=== PATIENT | female | born 1980 | race Caucasian/White ===

== ENCOUNTER 2016-11-29 20:29 | Emergency (ER) | payer BC ==
[2016-11-29] MEDS ORDERED: NS 0.9% 1000 ML* 1,000 ML IV ONE (21:28)
[2016-11-29] MEDS ORDERED: Ketorolac INJ* 30 MG/ML 1 ML VIAL IV ONE (21:28)
[2016-11-29 22:03] LABS: Hematocrit 42 % (35-47); Hemoglobin 14.3 g/dl (12.0-16.0); Mean Corpuscular HGB Conc 34 g/dl (31-36); Mean Corpuscular Hemoglobin 30 pg (27-31); Mean Corpuscular Volume 88 fL (80-97); Mean Platelet Volume 8 um3 (7.4-10.4); Red Blood Count 4.75 10^6/ul (4.0-5.4); Red Cell Distribution Width 13 % (10.5-15); White Blood Count 8.1 10^3/ul (3.5-10.8)
[2016-11-29 22:11] LABS: Add Diff/Slide Review? Slide Review Added; Comments Flag Yes
[2016-11-29 22:18] LABS: Albumin 4.2 g/dL (3.2-5.2); BUN/Creatinine Ratio 15.5 (8-20); C Reactive Protein 6.85 mg/L (< 5.00); Calcium 8.9 mg/dL (8.6-10.3); EGFR African American 121.2 (>60); EGFR Non-African American 94.2 (>60); Globulin 2.9 g/dL (2-4); Total Bilirubin 0.3 mg/dL (0.2-1.0); Total Protein 7.1 g/dL (6.4-8.9)
[2016-11-29 22:20] LABS: Potassium 3.7 mmol/L (3.5-5.0)
[2016-11-29] MEDS ORDERED: LORazepam TAB(*) 1 MG PO ONE (23:06)
[2016-11-29 23:16] VITALS: BP 126/73
--- NOTE | 2016-11-30 11:32 | ED ---
Joey Reynoso Michael, scribed for Edwin Flynn MD on 11/29/16 at 2112 . Influenza-Like Illness - HPI Summary HPI Summary: 36 y/o female comes to the ED presenting with neck and shoulder pain that started one week ago. The pt reports that the neck and shoulder pain started on the left side and has radiated to the right side. She also c/o fever with a temperature of 100.5, chills, and n/v/d that started 4 days ago. The pt presents with nasal congestion and sore throat that started 3 days ago. Currently, she does not have n/v/d, and yesterday was her first nml BM. The pt reports taking [place] today. 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 The doctor ordered her to have a CXR, blood work, and PPD. - History of Current Complaint Chief Complaint: EDFever Time Seen by Provider: 11/29/16 21:07 Hx Obtained From: Patient, Medical Records Onset/Duration: Gradual Onset, Lasting Weeks, Still Present Severity: Moderate Associated Signs & Symptoms: Fever, Myalgia - shoulder and neck pain, Sore Throat, Nasal Congestion, Vomiting - nausea., Diarrhea - Allergy/Home Medications Allergies/Adverse Reactions: Allergies Allergy/AdvReac Type Severity Reaction Status Date / Time No Known Allergies Allergy Verified 11/29/16 20:54 PMH/Surg Hx/FS Hx/Imm Hx Cardiovascular History: Denies: Other Cardiovascular Problems/Disorders GI History: Reports: Other GI Disorders - Hx heartburn, dx w/ h pylori Aug 2011 Denies: Hx Cirrhosis Musculoskeletal History: Denies: Other Musculoskeletal History Sensory History: Reports: Hx Contacts or Glasses - GLASSES Denies: Hx Hearing Aid Opthamlomology History: Reports: Hx Contacts or Glasses - GLASSES - Surgical History Surgery Procedure, Year, and Place: AGE 9, NASAL FRACTURE, 1989, [facility] Hx Anesthesia Reactions: No Infectious Disease History: No Infectious Disease History: Denies: Hx Hepatitis, Traveled Outside the [place] in Last 30 Days - Family History Known Family History: Positive: None Family History: no anesthesia reaction - Social History Occupation: Employed Full-time Lives: Alone Alcohol Use: None Substance Use Type: Reports: None Smoking Status (MU): Former Smoker Type: Cigarettes Review of Systems Positive: Sore Throat, Nasal Discharge Positive: Vomiting, Diarrhea, Nausea Positive: Myalgia - neck pain. shoulder pain. All Other Systems Reviewed And Are Negative: Yes Physical Exam Triage Information Reviewed: Yes Vital Signs On Initial Exam: Initial Vitals Temp Pulse Resp BP Pulse Ox 98.7 F 97 16 134/78 98 11/29/16 20:40 11/29/16 20:40 11/29/16 20:40 11/29/16 20:40 11/29/16 20:40 Vital Signs Reviewed: Yes Appearance: Positive: Well-Appearing, No Pain Distress Skin: Positive: Warm, Skin Color Reflects Adequate Perfusion, Dry Head/Face: Positive: Normal Head/Face Inspection Eyes: Positive: Normal ENT: Positive: Pharyngeal erythema - posterior Neck: Positive: No Lymphadenopathy Respiratory/Lung Sounds: Positive: Clear to Auscultation, Breath Sounds Present Cardiovascular: Positive: RRR Abdomen Description: Positive: Nontender, Soft Bowel Sounds: Positive: Present Musculoskeletal: Positive: Other - tender to palpation pericervical and upper dorsal spine. Neurological: Positive: Other - negative kernigs and negative brudzinski Psychiatric: Positive: Affect/Mood Appropriate Diagnostics - Vital Signs Vital Signs Temp Pulse Resp BP Pulse Ox 11/29/16 20:40 98.7 F 97 16 134/78 98 - Laboratory Lab Results: Lab Results 11/29/16 11/29/16 Range/Units 21:55 21:55 WBC 8.1 (3.5-10.8) 10^3/ul RBC 4.75 (4.0-5.4) 10^6/ul Hgb 14.3 (12.0-16.0) g/dl Hct 42 (35-47) % MCV 88 (80-97) fL MCH 30 (27-31) pg MCHC 34 (31-36) g/dl RDW 13 (10.5-15) % Plt Count 212 (150-450) 10^3/ul MPV 8 (7.4-10.4) um3 Neut % (Auto) 69.8 (38-83) % Lymph % (Auto) 14.3 L (25-47) % [place] % (Auto) 9.2 H (1-9) % Eos % (Auto) 2.2 (0-6) % Baso % (Auto) 4.5 H (0-2) % Absolute Neuts (auto) 5.6 (1.5-7.7) 10^3/ul Absolute Lymphs (auto) 1.2 (1.0-4.8) 10^3/ul Absolute Monos (auto) 0.7 (0-0.8) 10^3/ul Absolute Eos (auto) 0.2 (0-0.6) 10^3/ul Absolute Basos (auto) 0.4 H (0-0.2) 10^3/ul Absolute Nucleated RBC 0 10^3/ul Nucleated RBC % 0.1 Sodium 137 (133-145) mmol/L Potassium 3.7 (3.5-5.0) mmol/L Chloride 105 (101-111) mmol/L Carbon Dioxide 25 (22-32) mmol/L Anion Gap 7 (2-11) mmol/L BUN 11 (6-24) mg/dL Creatinine 0.71 (0.51-0.95) mg/dL Est GFR ( Amer) 121.2 (>60) Est GFR (Non-Af Amer) 94.2 (>60) BUN/Creatinine Ratio 15.5 (8-20) Glucose 96 (70-100) mg/dL Calcium 8.9 (8.6-10.3) mg/dL Total Bilirubin 0.30 (0.2-1.0) mg/dL AST 18 (13-39) U/L ALT 19 (7-52) U/L Alkaline Phosphatase 62 (34-104) U/L C-Reactive Protein 6.85 H (< 5.00) mg/L Total Protein 7.1 (6.4-8.9) g/dL Albumin 4.2 (3.2-5.2) g/dL Globulin 2.9 (2-4) g/dL Albumin/Globulin Ratio 1.4 (1-3) Result Diagrams: 11/29/16 21:55 11/29/16 21:55 Lab Statement: Any lab studies that have been ordered have been reviewed, and results considered in the medical decision making process. Flu Symptom Course/Dx - Course Course Of Treatment: Ms. Bowens presented to the ED with a viral-like picture of not feeling well with malaise and myalgias, mild and intermittent N/V/D and low grade fevers. She complained particularily about her upper back and neck being tight and painful with movement. She was tender in those areas and had no meningeal signs and labs were normal. She improved with ketorolac and I will treat her symptomatically. - Diagnoses Provider Diagnoses: Viral syndrome Discharge - Discharge Plan Condition: Stable Disposition: HOME Prescriptions: LORazepam TAB(*) [Ativan TAB(*)] 1 mg PO Q6H PRN #20 tab MDD 4 PRN Reason: Pain Patient Education Materials: Ibuprofen (By mouth), Viral Syndrome (ED) Referrals: Isaias Luu MD [Primary Care Provider] - The documentation as recorded by the Joey nation Michael accurately reflects the service I personally performed and the decisions made by me, Edwin Flynn MD.
== END 2016-11-29 23:14 | disposition home or self-care (01) ==
LOC: ED 20:29
DX: B34.9 Viral infection, unspecified (principal); M25.519 Pain in unspecified shoulder; M54.2 Cervicalgia; J02.9 Acute pharyngitis, unspecified; Z87.891 Personal history of nicotine dependence
CPT/HCPCS: 36415; 80053; 85025; 86140; 96361; 96374; 99283; A9270-GY; J1885

== ENCOUNTER 2017-08-21 09:23 | Emergency (ER) | payer BC ==
[2017-08-21] MEDS ORDERED: Ondansetron INJ* 2 MG/ML VIAL IV ONE (09:35)
[2017-08-21 09:58] LABS: ABS Basophils 0 10^3/ul (0-0.2); ABS Eosinophils 0 10^3/ul (0-0.6); ABS Lymphocytes 0.6 10^3/ul (1.0-4.8); ABS Monocytes 0.4 10^3/ul (0-0.8); ABS Neutrophils 13.8 10^3/ul (1.5-7.7); ABS Nucleated RBC 0 10^3/ul; Eosinophil % 0.1 % (0-6); Hematocrit 43 % (35-47); Hemoglobin 14.9 g/dl (12.0-16.0); Lymphocyte % 3.8 % (25-47); Mean Corpuscular HGB Conc 35 g/dl (31-36); Mean Corpuscular Hemoglobin 30 pg (27-31); Mean Corpuscular Volume 87 fL (80-97); Mean Platelet Volume 7 um3 (7.4-10.4); Nucleated Red Blood Cells % 0; Platelet Count 296 10^3/ul (150-450); Red Blood Count 4.96 10^6/ul (4.0-5.4); Red Cell Distribution Width 13 % (10.5-15); White Blood Count 14.8 10^3/ul (3.5-10.8)
[2017-08-21] MEDS: NS 0.9% 1000 ML* 2,000 ML IV ONE (10:05)
[2017-08-21 10:18] LABS: EGFR Non-African American 100.8 (>60)
[2017-08-21 11:52] VITALS: BP 134/76
--- NOTE | 2017-08-21 12:55 | ED ---
Gregg Reynoso Gabriel, scribed for Bryan Gonzalez MD on 08/21/17 at 1013 . Abdominal Pain/Female - HPI Summary HPI Summary: This patient is a 36 year old F presenting to [facility] with a chief complaint of ABD since 08/20/17. The patient rates the pain 6/10 in severity. Patient reports fatigue, brown vomiting, and loose stool that resembles her vomit. Additionally she reports that her son and daughter are experiencing similar symptoms. - History of Current Complaint Chief Complaint: EDAbdPain Stated Complaint: ABD PAIN, Time Seen by Provider: 08/21/17 10:08 Hx Obtained From: Patient Onset/Duration: Lasting Days - 1, Still Present Timing: Constant Severity Initially: Mild Severity Currently: Mild Pain Intensity: 6 Pain Scale Used: 0-10 Numeric Location: Diffuse Associated Signs and Symptoms: Positive: Vomiting, Diarrhea, Other: - fatigue Allergies/Adverse Reactions: Allergies Allergy/AdvReac Type Severity Reaction Status Date / Time No Known Allergies Allergy Verified 11/29/16 20:54 PMH/Surg Hx/FS Hx/Imm Hx Previously Healthy: No Cardiovascular History: Denies: Other Cardiovascular Problems/Disorders GI History: Reports: Other GI Disorders - Hx heartburn, dx w/ h pylori Aug 2011 Denies: Hx Cirrhosis Musculoskeletal History: Denies: Other Musculoskeletal History Sensory History: Reports: Hx Contacts or Glasses - GLASSES Denies: Hx Hearing Aid Opthamlomology History: Reports: Hx Contacts or Glasses - GLASSES - Surgical History Surgery Procedure, Year, and Place[place] AGE 9, [place] [facility] [place] Hx Anesthesia Reactions: No - Immunization History Date of Influenza Vaccine: 07/11 Immunizations Up to Date: Yes Infectious Disease History: No Infectious Disease History: Denies: Hx Hepatitis, Traveled Outside the [place] in Last 30 Days - Family History Known Family History: Negative: Hypertension Family History: no anesthesia reaction - Social History Lives: With Family Alcohol Use: None Substance Use Type: Reports: None Hx Tobacco Use: Yes Smoking Status (MU): Former Smoker Type: Cigarettes Review of Systems Positive: Fatigue Positive: Abdominal Pain, Vomiting, Diarrhea All Other Systems Reviewed And Are Negative: Yes Physical Exam - Summary Physical Exam Summary: Appearance: Well appearing, no pain distress Skin: warm, dry, reflects adequate perfusion Head/face: normal Eyes: EOMI, KESHA ENT: Patient has a yellow tinge to her lips and tounge. Neck: supple, non-tender Respiratory: CTA, breath sounds present Cardiovascular: RRR, pulses symmetrical Abdomen: non-tender, soft Bowel: Decreased bowel sounds Musculoskeletal: normal, strength/ROM intact Neuro: normal, sensory motor intact, A&Ox3 Triage Information Reviewed: Yes Vital Signs On Initial Exam: Initial Vitals Temp Pulse Resp BP Pulse Ox 98.5 F 121 20 133/107 97 08/21/17 09:24 08/21/17 09:24 08/21/17 09:24 08/21/17 09:24 08/21/17 09:24 Vital Signs Reviewed: Yes - Bravo Coma Scale Coma Scale Total: 15 Diagnostics - Vital Signs Vital Signs Temp Pulse Resp BP Pulse Ox 08/21/17 09:44 98.8 F 110 20 131/81 97 08/21/17 09:24 98.5 F 121 20 133/107 97 - Laboratory Lab Results: Lab Results 08/21/17 Range/Units 09:47 WBC 14.8 H (3.5-10.8) 10^3/ul RBC 4.96 (4.0-5.4) 10^6/ul Hgb 14.9 (12.0-16.0) g/dl Hct 43 (35-47) % MCV 87 (80-97) fL MCH 30 (27-31) pg MCHC 35 (31-36) g/dl RDW 13 (10.5-15) % Plt Count 296 (150-450) 10^3/ul MPV 7 L (7.4-10.4) um3 Neut % (Auto) 93.3 H (38-83) % Lymph % (Auto) 3.8 L (25-47) % [place] % (Auto) 2.6 (1-9) % Eos % (Auto) 0.1 (0-6) % Baso % (Auto) 0.2 (0-2) % Absolute Neuts (auto) 13.8 H (1.5-7.7) 10^3/ul Absolute Lymphs (auto) 0.6 L (1.0-4.8) 10^3/ul Absolute Monos (auto) 0.4 (0-0.8) 10^3/ul Absolute Eos (auto) 0 (0-0.6) 10^3/ul Absolute Basos (auto) 0 (0-0.2) 10^3/ul Absolute Nucleated RBC 0 10^3/ul Nucleated RBC % 0 Result Diagrams: 08/21/17 09:47 08/21/17 09:47 Lab Statement: Any lab studies that have been ordered have been reviewed, and results considered in the medical decision making process. Re-Evaluation - Re-Evaluation First Eval Re-Evaluation Time: 11:00 Change: Improved Comment: Patient is feeling better and is about half way through her IV fluids. Abdominal Pain Fem Course/Dx - Course Course Of Treatment: pt with n/v/d with 2 family members with same. No abd tenderness. Labs as above. Likely viral. Tx with fluids, zofran here with improvement. D/C with zofran. - Diagnoses Provider Diagnoses: Acute gastroenteritis Discharge - Discharge Plan Condition: Good Disposition: HOME Prescriptions: Ondansetron ODT TAB* [Zofran 4 MG Odt TAB*] 4 mg PO Q8H PRN #10 tab.odt PRN Reason: Nausea Patient Education Materials: Gastroenteritis (ED) Forms: *Work Release Referrals: Isaias Luu MD [Primary Care Provider] - Additional Instructions: Drink plenty of fluids, Gatorade G2 may help. [place] diet as tolerated. Return with pain, high fever, unable to keep fluids down or other concerns. PeptoBismol today, may start Imodium tomorrow as needed. The documentation as recorded by the Gregg nation Gabriel accurately reflects the service I personally performed and the decisions made by me, Bryan Gonzalez MD.
== END 2017-08-21 12:00 | disposition home or self-care (01) ==
LOC: ED 09:23
DX: K52.9 Noninfective gastroenteritis and colitis, unspecified (principal)
CPT/HCPCS: 36415; 80053; 83605; 83690; 84702; 85025; 86140; 96361; 96374; 99282; J2405

== ENCOUNTER 2019-06-18 03:07 | Emergency (ER) | payer SELFPAY ==
[2019-06-18] MEDS ORDERED: diPHENhydraMINE PO* 50 MG PO ONE (03:33)
--- NOTE | 2019-06-18 03:37 | ED ---
Skin Complaint - HPI Summary HPI Summary: This pt is a 38 Y/O F [place] [facility] [place] w family with a CC of hives that woke her up today at 0200 and began to travel up the legs and is currently rated a 7/10 in severity. Otherwise she states that she has had a sore throat for the last 2 weeks that has been persistent. She denies any N/V, SOB, headaches, fevers, and chills. She states that she has taken eye drops for conjunctivitis but denies other new medications, lotions or detergents. No known allergies. She has a PMHx of smoking. - History of Current Complaint Chief Complaint: EDAllergicReaction Time Seen by Provider: 06/18/19 03:15 Stated Complaint: ALLERGIC REACTION PER PT Hx Obtained From: Patient Onset/Duration: Started Hours Ago - 1 Skin Exposure Onset/Duration: Hours Ago - 1 Timing: Constant Onset Severity: Moderate Current Severity: Moderate Pain Intensity: 7 Pain Scale Used: 0-10 Numeric Skin Location: Other: - Bilateral lower extremity Character: Hives Aggravating Symptom(s): Nothing Alleviating Symptom(s): Nothing Associated Signs & Symptoms: Negative - N/V, SOB, headaches, fevers, and chills - Allergy/Home Medications Allergies/Adverse Reactions: Allergies Allergy/AdvReac Type Severity Reaction Status Date / Time No Known Allergies Allergy Verified 06/18/19 03:12 Home Medications: Home Medications Ofloxacin 0.3% (Eye Drop) [Ocuflox OPTH 0.3% (Eye Drop)] 1 - 2 drop LEFT EYE TID 06/18/19 [History Confirmed 06/18/19] PMH/Surg Hx/FS Hx/Imm Hx Previously Healthy: Yes Endocrine/Hematology History: Denies: Hx Diabetes Cardiovascular History: Denies: Hx Cardiac Arrest, Other Cardiovascular Problems/Disorders GI History: Reports: Other GI Disorders - Hx heartburn, dx w/ h pylori Aug 2011 Denies: Hx Cirrhosis Musculoskeletal History: Denies: Other Musculoskeletal History Sensory History: Reports: Hx Contacts or Glasses - GLASSES Denies: Hx Hearing Aid Opthamlomology History: Reports: Hx Contacts or Glasses - GLASSES - Surgical History Surgery Procedure, Year, and Place: AGE 9, [place] [facility] [place] 2011 Hx Anesthesia Reactions: No - Immunization History Date of Influenza Vaccine: 07/11 Infectious Disease History: No Infectious Disease History: Denies: Hx Hepatitis, Traveled Outside the [place] in Last 30 Days - Family History Known Family History: Negative: Hypertension - Social History Occupation: Employed Full-time Lives: With Family Alcohol Use: None Hx Substance Use: No Substance Use Type: Reports: None Hx Tobacco Use: Yes Smoking Status (MU): Light Every Day Tobacco Smoker Type: Cigarettes Review of Systems Negative: Fever, Chills Negative: Shortness Of Breath Negative: Vomiting, Nausea Positive: Rash - Hives on her lower legs Negative: Headache All Other Systems Reviewed And Are Negative: Yes Physical Exam - Summary Physical Exam Summary: Constitutional: Well-developed, Well-nourished, Alert. (-) Distressed Skin: Warm, Dry, uticaria to the bilateral lower extremities HENT: Normocephalic; Atraumatic Eyes: Conjunctiva normal Neck: Musculoskeletal ROM normal neck. (-) JVD, (-) Stridor, (-) Nuchal rigidity Cardio: Rhythm regular, rate normal, Heart sounds normal; Intact distal pulses; Radial pulses are 2+ and symmetric. (-) Murmur Pulmonary/Chest wall: Effort normal. (-) Respiratory distress, (-) Wheezes, (-) Rales Abd: Soft, (-) tenderness, (-) Distension Musculoskeletal: (-) Edema Lymph: (-) Cervical adenopathy Neuro: Alert, Oriented x3 Psych: Mood and affect Normal Triage Information Reviewed: Yes Vital Signs On Initial Exam: Initial Vitals Temp Pulse Resp BP Pulse Ox 97.3 F 87 16 132/93 97 06/18/19 03:08 06/18/19 03:08 06/18/19 03:08 06/18/19 03:08 06/18/19 03:08 Vital Signs Reviewed: Yes Procedures - Sedation Patient Received Moderate/Deep Sedation with Procedure: No Diagnostics - Vital Signs Vital Signs Temp Pulse Resp BP Pulse Ox 06/18/19 03:08 97.3 F 87 16 132/93 97 - Laboratory Lab Statement: Any lab studies that have been ordered have been reviewed, and results considered in the medical decision making process. Re-Evaluation - Re-Evaluation First Eval Re-Evaluation Time: 03:50 Change: Improved - Hives on legs resolved, has small area of hives to L buttock still. no ELIF/throat swelling. Course/Dx - Course Course Of Treatment: 38 y/o F who p/w uticaria w unknown trigger. - given benadryl. No systemic signs of allergic reaction. No airway involvement - Diagnoses Provider Diagnoses: Acute urticaria Discharge ED - Sign-Out/Discharge Documenting (check all that apply): Patient Departure - discharge - Discharge Plan Condition: Stable Disposition: HOME Patient Education Materials: Urticaria (ED) Referrals: Isaias Luu MD [Primary Care Provider] - 2 Days Additional Instructions: You were seen in the emergency department for hives. It is unclear what you had an allergic reaction to. Please follow up with your primary care doctor in next 2-3 days and return to emergency department for trouble breathing, throat swelling, fast heart rate, passing out or concerning symptoms. It was a pleasure taking care of you today. - Billing Disposition and Condition Condition: STABLE Disposition: Home - Attestation Statements Document Initiated by Deon: Yes Documenting Scribe: Saad Nuno Provider For Whom Deon is Documenting (Include Credential): Viki Albrecht MD Scribe Attestation: Saad Reynoso, scribed for Viki Albrecht MD on 06/18/19 at 0400. Scribe Documentation Reviewed: Yes Provider Attestation: The documentation as recorded by the Saad nation accurately reflects the service I personally performed and the decisions made by , Viki Albrecht MD Status of Scribe Document: Viewed
[2019-06-18 04:21] VITALS: BP 141/80
== END 2019-06-18 03:55 | disposition home or self-care (01) ==
LOC: ED 03:07
DX: L50.9 Urticaria, unspecified (principal); F17.210 Nicotine dependence, cigarettes, uncomplicated
CPT/HCPCS: 99282; A9270-GY